=== PATIENT | female | born 1990 | race Caucasian/White ===

== ENCOUNTER 2017-07-11 01:03 | Emergency (ER) | payer OTHER ==
[~2017-07-11] VITALS: Ht 167.6 cm; Wt 77.1 kg
[2017-07-11 03:06] VITALS: BP 134/76
== END 2017-07-11 03:06 | disposition home or self-care (01) ==
LOC: ED 01:03
DX: M67.472 Ganglion, left ankle and foot (principal)
CPT/HCPCS: Q0092

== ENCOUNTER 2020-06-20 23:03 | Emergency (ER) | payer MEDICAID ==
[~2020-06-20] VITALS: Ht 167.6 cm; Wt 138.6 kg
[2020-06-21 00:41] LABS: BASOPHIL % 0.3 % (0-2); PLATELET COUNT 301 x10^3mcL (130-400); RED CELL DISTRIBUTION WIDTH 13.4 % (11.5-14.5)
[2020-06-21 00:42] LABS: UA SPECIFIC GRAVITY 1.025 (1.005-1.035); microscopic required? YES; urine erythrocyte 3+ (NEGATIVE)
[2020-06-21 01:00] LABS: CALCIUM 9.2 mg/dL (8.5-10.1); CARBON DIOXIDE 31.1 mmol/L (21-32); CHLORIDE SERUM 104 mmol/L (98-107); CREATININE SERUM 1.1 mg/dL (0.6-1.0); GFR1 > 60 mL/min; GLUCOSE SERUM 105 mg/dL (74-106); POTASSIUM SERUM 3.9 mmol/L (3.5-5.1); SODIUM SERUM 139 mmol/L (136-145)
[2020-06-21 01:04] LABS: ALKALINE PHOSPHATASE 121 U/L (46-116); ALT/SGPT 101 U/L (14-59); AMYLASE 43 U/L (25-115); AST/SGOT 92 U/L (15-37); BILIRUBIN TOTAL 0.43 mg/dL (0.20-1.00); LIPASE 234 IU/L (73-393)
[2020-06-21 01:12] LABS: ALBUMIN 3.3 g/dL (3.4-5.0)
[2020-06-21 04:01] VITALS: BP 112/46
== END 2020-06-21 04:01 | disposition home or self-care (01) ==
LOC: ED 23:03
PROVIDERS: Emergency Medicine
DX: N39.0 Urinary tract infection, site not specified (principal); K21.9 Gastro-esophageal reflux disease without esophagitis
CPT/HCPCS: C9113; J1885; J2405